=== PATIENT | male | born 1960 | race Caucasian/White ===

== ENCOUNTER 2022-03-13 19:19 | Inpatient (IN) | payer SELFPAY ==
[~2022-03-13 19:19] MED LIST: Iopamidol 370 76% 100 ML VIAL ONE
[2022-03-13] MEDS ORDERED: Aspirin 300 MG Suppository PR PRN (20:33)
[2022-03-13] MEDS ORDERED: Acetaminophen 325 MG TAB PO PRN (20:46)
[2022-03-13] MEDS ORDERED: Aspirin Chewable 81 MG TAB PO SCH (21:15)
[2022-03-13] MEDS: Sodium Chloride 0.9% 1,000 ML IV SCH (21:35)
[2022-03-13] MEDS: Atorvastatin Calcium 40 MG TAB PO SCH (21:40)
[2022-03-14 03:08] LABS: Amphetamine Not Detected (NotDetected); Barbiturates Screen Not Detected (NotDetected); Benzodiazepine Screen Not Detected (NotDetected); Cocaine Metabolite Screen Not Detected (NotDetected); Methadone Not Detected (NotDetected); Methamphetamine Not Detected (NotDetected); Opiate Screen Not Detected (NotDetected); Oxycodone Screen Not Detected (NotDetected); Phencyclidine (PCP) Not Detected (NotDetected); THC/Cannabinoid Screen Not Detected (NotDetected); Tricyclic Screen Not Detected (NotDetected)
[2022-03-14 05:14] LABS: #Basophils 0.1 10x3/uL (0.0-0.2); #Eosinphils 0.3 10x3/uL (0.0-0.5); #Monocytes 0.6 10x3/uL (0.0-1.1); %Basophils 0.6 % (0.0-2.0); %Eosinophils 3.7 % (0.0-6.0); %Lymphocytes 38.6 % (18.0-47.0); %Monocytes 7.9 % (0.0-10.0); %Neutrophils 48.8 % (40.0-75.0); Mean Corpuscular HGB CONC 34.6 g/dL (32.0-36.0); Mean Corpuscular Hemoglobin 27.7 pg (27.0-33.0); Mean Platelet Volume 10.3 fl (7.4-10.4); Platelet Count 194 10x3/uL (150-450); RBC Distribution Width 14.3 % (11.5-14.5); Red Blood Cell (RBC) Count 5.41 10x6/uL (4.32-5.72); White Blood Cell (WBC) Count 8.1 10x3/uL (3.5-10.5)
[2022-03-14 05:20] LABS: Anion Gap 13 mmol/L (10-20); BUN (Urea Nitrogen) 17 mg/dL (8.4-25.7); Calc. Creatinine Clearance 85 mL/min (70-130); Calcium 9.2 mg/dL (7.8-10.44); Carbon Dioxide 25 mmol/L (23-31); Cardiac Risk 6.1 (Less than 4.5); Chloride 105 mmol/L (98-107); Cholesterol 177 mg/dl (< 200 Desired); Glucose 85 mg/dL (80-115); HDL Cholesterol 29 mg/dL (>60 Neg Risk); LDL Cholesterol, Calculated 117 mg/dL; Magnesium 1.6 mg/dL (1.6-2.6); Potassium 3.6 mmol/L (3.5-5.1); Sodium 139 mmol/L (136-145); Triglycerides 155 mg/dL (Less than 150)
[2022-03-14 05:21] LABS: Troponin I 0.015 ng/mL (< 0.028)
[2022-03-14] MEDS: Amlodipine 10 MG TAB PO SCH (08:16)
[2022-03-14] MEDS: Clopidogrel Bisulfate 75 MG TAB PO SCH (08:16)
[2022-03-14] MEDS: Aspirin 81 mg Enteric Coated Tablet PO SCH (08:16)
[2022-03-14] MEDS: Enoxaparin Sodium 40 MG/0.4 ML SYRINGE SC SCH (08:23)
[2022-03-14 12:45] LABS: Hemoglobin A1c 5.4 % (4.0-6.0)
[2022-03-14] MEDS: Sodium Chloride 0.9% 1,000 ML IV SCH ×2 (12:57→20:08)
[2022-03-14 20:00] LABS: SARS-CoV-2 PCR by NAA DETECTED (NotDetected)
[2022-03-14] MEDS: Atorvastatin Calcium 40 MG TAB PO SCH (20:07)
[2022-03-15 04:30] LABS: #Basophils 0.1 10x3/uL (0.0-0.2); #Eosinphils 0.2 10x3/uL (0.0-0.5); #Monocytes 0.8 10x3/uL (0.0-1.1); #Neutrophils 4.6 10x3/uL (1.5-8.4); %Basophils 0.6 % (0.0-2.0); %Eosinophils 2.4 % (0.0-6.0); %Lymphocytes 32.5 % (18.0-47.0); %Monocytes 9.2 % (0.0-10.0); %Neutrophils 54.9 % (40.0-75.0); Mean Corpuscular HGB CONC 34.6 g/dL (32.0-36.0); Mean Corpuscular Hemoglobin 27.7 pg (27.0-33.0); Mean Corpuscular Volume 80.1 fl (81.2-95.1); Mean Platelet Volume 10.3 fl (7.4-10.4); Platelet Count 203 10x3/uL (150-450); RBC Distribution Width 14.2 % (11.5-14.5); Red Blood Cell (RBC) Count 5.42 10x6/uL (4.32-5.72); White Blood Cell (WBC) Count 8.4 10x3/uL (3.5-10.5)
[2022-03-15 04:47] LABS: Anion Gap 12 mmol/L (10-20); BUN (Urea Nitrogen) 17 mg/dL (8.4-25.7); Calc. Creatinine Clearance 80 mL/min (70-130); Calcium 9.2 mg/dL (7.8-10.44); Carbon Dioxide 25 mmol/L (23-31); Chloride 108 mmol/L (98-107); Glucose 83 mg/dL (80-115); Potassium 3.7 mmol/L (3.5-5.1); Sodium 141 mmol/L (136-145)
[2022-03-15 04:49] LABS: Troponin I 0.015 ng/mL (< 0.028)
[2022-03-15] MEDS: Amlodipine 10 MG TAB PO SCH ×2 (09:13→09:14)
[2022-03-15] MEDS: Enoxaparin Sodium 40 MG/0.4 ML SYRINGE SC SCH (09:14)
[2022-03-15] MEDS: Aspirin 81 mg Enteric Coated Tablet PO SCH (09:14)
[2022-03-15] MEDS: Clopidogrel Bisulfate 75 MG TAB PO SCH (09:14)
[2022-03-15] MEDS: Sodium Chloride 0.9% 1,000 ML IV SCH (13:25)
[2022-03-15] MEDS: Atorvastatin Calcium 40 MG TAB PO SCH (20:51)
[2022-03-16] MEDS: Sodium Chloride 0.9% 1,000 ML IV SCH (00:56)
[2022-03-16] MEDS: Aspirin 81 mg Enteric Coated Tablet PO SCH (09:37)
[2022-03-16] MEDS: Clopidogrel Bisulfate 75 MG TAB PO SCH (09:37)
[2022-03-16] MEDS: Enoxaparin Sodium 40 MG/0.4 ML SYRINGE SC SCH (09:37)
[2022-03-16] MEDS: Atorvastatin Calcium 40 MG TAB PO SCH (20:42)
[2022-03-17] MEDS ORDERED: Lisinopril 2.5 MG TAB PO SCH (09:00)
[2022-03-17] MEDS: Enoxaparin Sodium 40 MG/0.4 ML SYRINGE SC SCH (09:25)
[2022-03-17] MEDS: Clopidogrel Bisulfate 75 MG TAB PO SCH (09:26)
[2022-03-17] MEDS: Aspirin 81 mg Enteric Coated Tablet PO SCH (09:26)
[2022-03-17] MEDS: Amlodipine 10 MG TAB PO SCH (09:26)
[2022-03-17 10:11] VITALS: BMI 23.9
[2022-03-17] MEDS: Atorvastatin Calcium 40 MG TAB PO SCH (21:46)
[2022-03-18 06:04] LABS: Anion Gap 14 mmol/L (10-20); BUN (Urea Nitrogen) 17 mg/dL (8.4-25.7); Calc. Creatinine Clearance 86 mL/min (70-130); Calcium 9.3 mg/dL (7.8-10.44); Carbon Dioxide 24 mmol/L (23-31); Chloride 105 mmol/L (98-107); Glucose 93 mg/dL (80-115); Potassium 3.7 mmol/L (3.5-5.1); Sodium 139 mmol/L (136-145)
[2022-03-18] MEDS: Aspirin 81 mg Enteric Coated Tablet PO SCH (09:13)
[2022-03-18] MEDS: Amlodipine 10 MG TAB PO SCH (09:13)
[2022-03-18] MEDS: Lisinopril 5 MG TAB PO SCH (09:13)
[2022-03-18] MEDS: Enoxaparin Sodium 40 MG/0.4 ML SYRINGE SC SCH (09:13)
[2022-03-18] MEDS: Clopidogrel Bisulfate 75 MG TAB PO SCH (09:13)
[2022-03-18] MEDS: Atorvastatin Calcium 40 MG TAB PO SCH (20:18)
[2022-03-19] MEDS: Amlodipine 10 MG TAB PO SCH (09:14)
[2022-03-19] MEDS: Aspirin 81 mg Enteric Coated Tablet PO SCH (09:15)
[2022-03-19] MEDS: Clopidogrel Bisulfate 75 MG TAB PO SCH (09:15)
[2022-03-19] MEDS: Lisinopril 5 MG TAB PO SCH (09:15)
[2022-03-19] MEDS: Enoxaparin Sodium 40 MG/0.4 ML SYRINGE SC SCH (09:15)
[2022-03-19 12:17] VITALS: BP 131/71; TEMP 97.8
== END 2022-03-19 13:39 | disposition home or self-care (01) | DRG 64 ==
LOC: CSHTELE 19:19 → INTOOBSV 19:19 → OBSVTOIN 03-15 14:14
PROVIDERS: ADMIT Internal Medicine; ATTEND Family Medicine
DX: I63.412 Cerebral infarction due to embolism of left middle cerebral artery (principal); U07.1 COVID-19; J69.0 Pneumonitis due to inhalation of food and vomit; G81.91 Hemiplegia, unspecified affecting right dominant side; I10 Essential (primary) hypertension; I65.22 Occlusion and stenosis of left carotid artery; E78.5 Hyperlipidemia, unspecified; F03.90 Unspecified dementia, unspecified severity, without behavioral disturbance, psychotic disturbance, mood disturbance, and anxiety; E11.9 Type 2 diabetes mellitus without complications; R53.81 Other malaise; R47.01 Aphasia; Z66 Do not resuscitate; Z86.73 Personal history of transient ischemic attack (TIA), and cerebral infarction without residual deficits; Z79.899 Other long term (current) drug therapy; Z87.891 Personal history of nicotine dependence
CPT/HCPCS: 36415; 36416; 70496; 70498; 70551; 80048; 80061; 80306; 83036; 83735; 84484; 85025; 93005; 93010; 93306; 93880; 93970; 96372; G0378; J1650; J7050; Q9967; U0003; U0005